=== PATIENT | female | born 1990 | race Caucasian/White ===

== ENCOUNTER 2022-05-22 17:09 | Observation (INO) | payer MEDICAID ==
[~2022-05-22] VITALS: Ht 152.4 cm; Wt 81.6 kg
[2022-05-22 19:31] LABS: CLARITY URINE CLOUDY (CLEAR); COLOR URINE YELLOW (YELLOW); KETONES URINE NEGATIVE (NEGATIVE); LEUKOCYTE ESTERASE URINE 3+ (NEGATIVE); NITRITE URINE NEGATIVE (NEGATIVE); OCCULT BLOOD URINE NEGATIVE (NEGATIVE); PROTEIN URINE NEGATIVE (NEGATIVE); UROBILINOGEN URINE 0.2 E.U./dL (0.2-1.0)
== END 2022-05-22 21:00 | disposition home or self-care (01) ==
LOC: EDBD → 8 EST LDRP 17:09
PROVIDERS: ADMIT Obstetrics & Gynecology; ATTEND Obstetrics & Gynecology
DX: O26.893 Other specified pregnancy related conditions, third trimester (principal); R10.30 Lower abdominal pain, unspecified; O62.9 Abnormality of forces of labor, unspecified; O99.891 Other specified diseases and conditions complicating pregnancy; M54.9 Dorsalgia, unspecified; Z3A.40 40 weeks gestation of pregnancy
CPT/HCPCS: 59025; 76805; 76818; 81003; G0378; 99281

== ENCOUNTER 2022-06-01 03:13 | Inpatient (IN) | payer MEDICAID ==
[~2022-06-01] VITALS: Ht 149.9 cm; Wt 82.6 kg
[2022-06-01] MEDS ORDERED: PNV1TABL50 PO (03:50)
[2022-06-01] MEDS ORDERED: NALOXONE HCL 0.4 MG/ML 1ML VIAL IM PRN (04:30)
[2022-06-01] MEDS ORDERED: METHYLERGONOVINE MALEATE 0.2 MG/ML IM PRN ×2 (04:30→19:15)
[2022-06-01] MEDS ORDERED: LIDOCAINE HCL 1% 20ML VIAL (Pyxis) INJ INFIL SCH (04:30)
[2022-06-01] MEDS ORDERED: AMPICILLIN 2GM in NS 100ML 100 ML IV SCH ×2 (04:30→05:15)
[2022-06-01] MEDS ORDERED: CARBOPROST TROMETHAMINE 250 MCG/ML AMPUL IM PRN (04:30)
[2022-06-01] MEDS: LACTATED RINGERS 1,000 ML IV SCH ×3 (04:55→15:26)
[2022-06-01 05:43] LABS: CLARITY URINE CLEAR (CLEAR); COLOR URINE YELLOW (YELLOW); KETONES URINE NEGATIVE (NEGATIVE); LEUKOCYTE ESTERASE URINE 1+ (NEGATIVE); NITRITE URINE NEGATIVE (NEGATIVE); OCCULT BLOOD URINE NEGATIVE (NEGATIVE); PH URINE 6.5 (4.5-8.0); PROTEIN URINE NEGATIVE (NEGATIVE); SPECIFIC GRAVITY URINE 1.003 (1.005-1.030); UROBILINOGEN URINE 0.2 E.U./dL (0.2-1.0)
[2022-06-01 05:44] LABS: BASOPHILS % 0.6 % (0.0-2.0); EOSINOPHILS % 1.4 % (0.0-5.0); HEMATOCRIT. 35.1 % (36.0-48.0); HEMOGLOBIN. 11.8 g/dL (12.0-16.0); LYMPHOCYTES % 32.6 % (20.0-50.0); MEAN CORPUSCULAR HEMOGLOBIN 30.5 pg (28.0-32.0); MEAN CORPUSCULAR VOLUME 90.8 fL (81.0-99.0); MEAN PLATELET VOLUME 11.1 fl (7.4-10.4); NEUTROPHILS % 57.4 % (40.0-76.0); PLATELET 223 x1000/uL (130-400); RED BLOOD CELL COUNT 3.87 mill/uL (4.2-5.4); RED CELL DISTRIBUTION WIDTH 14.8 % (11.6-14.6)
[2022-06-01 05:53] LABS: INR 0.9; PARTIAL THROMBOPLASTIN TIME 26.3 sec (23.4-31.0)
[2022-06-01 05:57] LABS: *AMPHETAMINES SCREEN URINE NEGATIVE (NEGATIVE); *BARBITURATES SCREEN URINE NEGATIVE (NEGATIVE); *BENZODIAZEPINES SCREEN URINE NEGATIVE (NEGATIVE); *COCAINE SCREEN URINE NEGATIVE (NEGATIVE); CANNABINOID URINE SCREEN NEGATIVE (NEGATIVE); METHADONE URINE SCREEN NEGATIVE (NEGATIVE); OPIATES URINE SCREEN NEGATIVE (NEGATIVE); PHENCYCLIDINE URINE SCREEN NEGATIVE (NEGATIVE)
[2022-06-01 06:23] LABS: HEPATITIS B SURFACE ANTIGEN NEGATIVE
[2022-06-01] MEDS: OXYTOCIN 30 UNITS/500ML NS PMX 500 ML IV SCH ×2 (06:46→17:13)
[2022-06-01] MEDS ORDERED: INFLUENZA VACCINE 05/PF 0.5 ML SYRINGE IM ONE (08:15)
[2022-06-01] MEDS: BUTORPHANOL TARTRATE 2 MG/ML VIAL IV PRN ×2 (08:42→12:58)
[2022-06-01] MEDS ORDERED: AMPICILLIN 1,000 MG in SODIUM CHLORIDE 0.9% 50 ML IV SCH (09:00)
[2022-06-01] MEDS ORDERED: MINERAL OIL 30ML BOTTLE PO SCH (12:45)
[2022-06-01 18:34] VITALS: BP 97/62
[2022-06-01] MEDS ORDERED: TETANUS, DIPHTHERIA, PERTUSSIS VAC/PF 0.5ML (>10YR OLD) IM ONE (19:00)
[2022-06-01] MEDS ORDERED: DIPHENHYDRAMINE 25MG CAPSULE PO PRN (19:15)
[2022-06-01] MEDS ORDERED: LANOLIN OINT 7GM TUBE TOP PRN (19:15)
[2022-06-01] MEDS ORDERED: IBUPROFEN 400MG TABLET PO PRN (19:15)
[2022-06-01] MEDS ORDERED: OXYTOCIN 30 UNITS/500ML NS PMX 500 ML IV SCH (19:15)
[2022-06-01] MEDS ORDERED: RHO(D) IMMUNE GLOBULIN 300 MCG/SYR IM PRN (19:15)
[2022-06-01 19:30] VITALS: BP 98/47
[2022-06-02 04:00] VITALS: BP 123/74
[2022-06-02 07:25] LABS: BASOPHILS % 0.5 % (0.0-2.0); EOSINOPHILS % 0.5 % (0.0-5.0); HEMOGLOBIN. 9.9 g/dL (12.0-16.0); LYMPHOCYTES % 20.2 % (20.0-50.0); MEAN CORPUSCULAR HEMOGLOBIN 30.4 pg (28.0-32.0); MEAN CORPUSCULAR VOLUME 89.2 fL (81.0-99.0); MEAN PLATELET VOLUME 10.3 fl (7.4-10.4); MONOCYTES % 8.4 % (2.0-8.0); NEUTROPHILS % 70.4 % (40.0-76.0); PLATELET 200 x1000/uL (130-400); RED BLOOD CELL COUNT 3.25 mill/uL (4.2-5.4); RED CELL DISTRIBUTION WIDTH 14.5 % (11.6-14.6)
[2022-06-02 08:00] VITALS: BP 101/56
[2022-06-02] MEDS: PRENATAL VIT/FE FUMARATE/FA TABLET PO SCH (08:27)
[2022-06-02] MEDS: IBUPROFEN 800MG TABLET PO PRN ×2 (09:22→21:56)
[2022-06-02 16:05] VITALS: BP 104/61
[2022-06-02 20:00] VITALS: BP 125/65
[2022-06-03] MEDS ORDERED: FERR325T6 MT (00:23)
[2022-06-03] MEDS ORDERED: IBUP-2030 PO (00:23)
[2022-06-03] MEDS ORDERED: MEDROXYPROGESTERONE ACETATE 150MG/ML VIAL IM NR (00:30)
[2022-06-03 04:00] VITALS: BP 113/62
[2022-06-03 07:45] VITALS: BP 119/75
[2022-06-03] MEDS: PRENATAL VIT/FE FUMARATE/FA TABLET PO SCH (08:39)
[2022-06-03] MEDS: IBUPROFEN 800MG TABLET PO PRN (11:00)
== END 2022-06-03 12:30 | disposition home or self-care (01) | DRG 560 ==
LOC: 8 EST LDRP 03:13 → OBSVTOIN 04:15 → 8EST 18:21
PROVIDERS: ADMIT Obstetrics & Gynecology; ATTEND Obstetrics & Gynecology
PROC: 10E0XZZ Delivery of Products of Conception, External Approach (ICD-10-PCS; principal; 2022-06-01)
DX: O48.0 Post-term pregnancy (principal); Z37.0 Single live birth; D62 Acute posthemorrhagic anemia; O69.81X0 Labor and delivery complicated by cord around neck, without compression, not applicable or unspecified; O99.02 Anemia complicating childbirth; Z3A.41 41 weeks gestation of pregnancy; Z20.822 Contact with and (suspected) exposure to COVID-19
CPT/HCPCS: 36415; 80305; 81003; 85025; 86592; 86703; 86762; 86850; 86900; 87340; 87426; 90686; 90715; 99281; G0378; J0290; J0595; J7120; A4315; J2590